=== PATIENT | female | born 1995 | race American Indian/Alaskan Native ===

== ENCOUNTER 2016-12-30 15:50 | Outpatient (CLI) | payer BC, MEDICAID ==
[2016-12-30] MEDS ORDERED: LACTATED RINGERS 500 ML IV ONE (16:09)
[2016-12-30 16:46] LABS: Bacteria,Urine 1+ /HPF (Negative); Bilirubin,Urine NEG (Negative); Blood,Urine NEG (Negative); Ketones,Urine TR mg/dL (Negative); Leukocyte Esterase,Urine LG (Negative); Mucus,Urine 3+ /HPF; Nitrite,Urine NEG (Negative); Protein,Urine <15 mg/dL mg/dL (Negative); Urobilinogen,Urine < 2.0 mg/dL (<2.0)
[2016-12-30 16:52] VITALS: BP 127/76
[2016-12-30] MEDS ORDERED: ZOFRAN IV ONE (17:49)
== END 2016-12-30 19:50 | disposition home or self-care (01) ==
LOC: TRG 15:50
PROVIDERS: ATTEND Obstetrics & Gynecology
DX: O47.03 False labor before 37 completed weeks of gestation, third trimester (principal); Z3A.33 33 weeks gestation of pregnancy
CPT/HCPCS: 59025; 81001; 96360; 96372; J2405; J7120

== ENCOUNTER 2016-12-31 08:46 | Outpatient (CLI) | payer BC, MEDICAID ==
[2016-12-31] MEDS ORDERED: LACTATED RINGERS 500 ML IV ONE (09:18)
[2016-12-31] MEDS ORDERED: ZOFRAN IV ONE (09:19)
[2016-12-31] MEDS ORDERED: LACTATED RINGERS 1,000 ML IV ONE (09:20)
[2016-12-31 09:57] VITALS: BP 140/75
[2016-12-31 10:27] LABS: Basophils % (Auto) 0.4 % (0.0-1.8); Eosinophils % (Auto) 0.4 % (0.0-4.3); Hematocrit 32.7 % (30.3-42.9); Hemoglobin 10.8 gm/dl (10.1-14.3); Mean Corpuscular HGB Conc 33 % (30-34); Mean Corpuscular Volume 78 fl (79-97); Platelet Count 331 K/mm3 (140-440); Red Cell Distribution Width 14.5 % (13.2-15.2); White Blood Count 11.2 K/mm3 (4.5-11.0)
[2016-12-31 10:43] LABS: Alanine Aminotransferase 8 units/L (7-56); Albumin 3.1 g/dL (3.9-5); Albumin/Globulin Ratio 0.9 %; Alkaline Phosphatase 97 units/L (35-129); Anion Gap 18 mmol/L; Blood Urea Nitrogen 5 mg/dL (7-17); Calcium 8.6 mg/dL (8.4-10.2); Carbon Dioxide 20 mmol/L (22-30); Chloride 100.8 mmol/L (98-107); Glucose 80 mg/dL (65-100); Mean Corpuscular Hemoglobin 26 pg (28-32); Potassium 3.9 mmol/L (3.6-5.0); Sodium 135 mmol/L (137-145); Total Protein 6.6 g/dL (6.3-8.2)
[2016-12-31] MEDS ORDERED: XYLOCAINE 1% MPF 5 mL INFILTRATI ONE (10:44)
[2016-12-31] MEDS ORDERED: ROCEPHIN IM SCH (10:45)
[2016-12-31] MEDS ORDERED: ROCEPHIN/NS 1 GM/50 ML 1 GM/50 ML BAG IV SCH (12:00)
== END 2016-12-31 13:00 | disposition home or self-care (01) ==
LOC: TRG 08:46
PROVIDERS: ATTEND Obstetrics & Gynecology
DX: O47.03 False labor before 37 completed weeks of gestation, third trimester (principal); Z3A.33 33 weeks gestation of pregnancy
CPT/HCPCS: 36415; 80053; 85025; 96360; 96361; 96365; 96374; J0696; J2405; J7120

== ENCOUNTER 2017-02-12 14:04 | Inpatient (IN) | payer BC, MEDICAID ==
[2017-02-12] MEDS ORDERED: DILAUDID IV ONE (16:00)
[2017-02-12 16:04] LABS: Hematocrit 28.2 % (30.3-42.9); Hemoglobin 9.1 gm/dl (10.1-14.3); Mean Corpuscular HGB Conc 32 % (30-34); Mean Corpuscular Volume 79 fl (79-97); Platelet Count 349 K/mm3 (140-440); Red Blood Count 3.58 M/mm3 (3.65-5.03); Red Cell Distribution Width 15.8 % (13.2-15.2)
--- NOTE | 2017-02-12 16:20 | History and Physical Report ---
History of Present Illness Date of examination: 02/12/17 Date of admission: 02/12/17 14:04 Chief complaint: sent from [facility] History of present illness: Pt is a 22 year old -Somali female s/p spontaneous vaginal delivery on 02/07/17 who presents from [facility] secondary to foul smelling lochia and perineal pain. She also reports hip pain (right greater than left). The patient reports an apneic episode yesterday when she started "jumping over things and throwing things around" in an effort to get her baby to the hospital. She took the baby to multiple hospitals, but she is now at [facility] for evaluation. The pt was noted to have difficulty walking and was examined by one of the physicians there and noted to have foul smelling lochia. The pt does reports that she has been having bilateral hip pain since before the delivery, but it has been worse since the delivery, especially her right hip. She has not taken any pain medicine since the day she was discharge from the hospital because she is "afraid of falling asleep and not being able to take care of the baby." She is visibly upset and tearful during the interview and reports that this whole situation is "too stressful because I need to be with my baby." Past History Past Medical History: other (Morbid Obesity ) Past Surgical History: other (Knee surgery ) Family/Genetic History: hypertension Social history: no significant social history - Obstetrical History : 1 Para: 1 Hx # Term Pregnancies: 1 Number of Pregnancies: 0 Spontaneous Abortions: 0 Induced : 0 Number of Living Children: 1 Medications and Allergies Allergies Allergy/AdvReac Type Severity Reaction Status Date / Time No Known Allergies Allergy Verified 12/30/16 16:09 Home Medications Medication Instructions Recorded Confirmed Last Taken Type Sulfamethoxazole/Trimethoprim 1 each PO BID #7 tablet 12/31/16 02/08/17 Unknown Rx [Bactrim DS TAB] Ferrous Sulfate [Feosol 325 MG tab] 325 mg PO BID #60 tablet 02/08/17 Unknown Rx Ibuprofen [Motrin] 800 mg PO Q8HR PRN #30 tablet 02/08/17 Unknown Rx Vit-Fe Fumar-FA [ 1 tab PO QDAY #30 tablet 02/08/17 Unknown Rx Vitamin] oxyCODONE /ACETAMINOPHEN [Percocet 1 tab PO Q6HR PRN #40 tablet 02/08/17 Unknown Rx 5/325] Review of Systems All systems: negative - Vital Signs Vital signs: Vital Signs Temp Pulse Resp BP 99.2 F 81 20 141/79 02/12/17 14:05 02/12/17 14:05 02/12/17 14:05 02/12/17 14:05 Temp Pulse Resp BP Pulse Ox 99.2 F 81 20 141/79 02/12/17 14:05 02/12/17 14:05 02/12/17 14:05 02/12/17 14:05 - Physical Exam Breasts: Positive: deferred Cardiovascular: Regular rate Lungs: Positive: Clear to auscultation Abdomen: Positive: soft (obese) Genitourinary (Female): Positive: other (Perineal laceration with yellow exudate ; tender; foul smelling lochia ) Uterus: Positive: enlarged ( ), tender Extremities: Positive: normal Results Result Diagrams: 02/12/17 15:30 02/12/17 15:30 All other labs normal. Assessment and Plan A: PPD#5 s/p at term Endometritis PIH Morbid Obesity Anxiety P: Admit to Mother/Baby unit for observation IV Gentamicin and Clindamycin Magnesium sulfate for seizure prophylaxis Pain medication PRN Monitor clinically
[2017-02-12 16:22] LABS: Alanine Aminotransferase 15 units/L (7-56)
[2017-02-12 17:01] LABS: Mean Corpuscular Hemoglobin 26 pg (28-32)
[2017-02-12 17:06] LABS: Lactate Dehydrogenase 227 units/L (91-180); Uric Acid 8.2 mg/dL (3.5-7.6)
[2017-02-12] MEDS ORDERED: VASELINE TP PRN (17:24)
[2017-02-12] MEDS ORDERED: MAGNESIUM SULFATE 4GM/100ML 4 GM/100 ML BAG IV ONE (18:28)
[2017-02-12] MEDS ORDERED: CALCIUM GLUCONATE IV SCH (19:00)
[2017-02-12] MEDS ORDERED: MAGNESIUM SULFATE 40GM/1000ML 40 GM/1,000 ML BAG IV SCH (19:00)
[2017-02-12] MEDS ORDERED: CALCIUM GLUCONATE 1,000 MG in NACL 0.9% 100 ML IV ONE (19:00)
[2017-02-12 19:19] LABS: Bacteria,Urine 1+ /HPF (Negative); Bilirubin,Urine NEG (Negative); Blood,Urine LG (Negative); Ketones,Urine NEG (Negative); Leukocyte Esterase,Urine LG (Negative); Mucus,Urine FEW /HPF; Nitrite,Urine NEG (Negative); Urobilinogen,Urine < 2.0 mg/dL (<2.0)
[2017-02-12] MEDS: CLEOCIN 900 MG/50 mL 900 MG/50 ML BAG IV SCH (21:00)
[2017-02-12] MEDS: LACTATED RINGERS 1,000 ML IV SCH (21:00)
[2017-02-12] MEDS: MOTRIN PO PRN (21:00)
[2017-02-12] MEDS: GARAMYCIN/NS 120MG/100ML 120 MG/100 ML BAG IV SCH (22:00)
[2017-02-13] MEDS: PERCOCET 5/325 PO PRN ×3 (00:35→17:34)
[2017-02-13] MEDS ORDERED: SOLARCAINE ALOE TP PRN (03:09)
[2017-02-13] MEDS: CLEOCIN 900 MG/50 mL 900 MG/50 ML BAG IV SCH ×2 (05:30→14:15)
[2017-02-13] MEDS: GARAMYCIN/NS 120MG/100ML 120 MG/100 ML BAG IV SCH ×2 (06:25→14:53)
[2017-02-13] MEDS: LACTATED RINGERS 1,000 ML IV SCH (08:48)
[2017-02-13] MEDS: MOTRIN PO PRN ×2 (11:29→17:34)
--- NOTE | 2017-02-13 13:35 | Progress Note ---
Assessment and Plan A: PPD#6 s/p at term Endometritis PIH Morbid Obesity Anxiety P: continue present mgt IV Gentamicin and Clindamycin continue for 48 hrs Day #1 Magnesium sulfate for seizure prophylaxis complete at 24 hrs Pain medication PRN Monitor clinically Subjective - Subjective Date of service: 02/13/17 Principal diagnosis: endometritis, suture tear, pih Patient reports: pain well controlled : doing well (at [facility] ) Objective - Vital Signs Latest vital signs: Vital Signs Temp Pulse Resp BP 02/13/17 12:12 97.8 F 72 18 142/68 02/13/17 07:58 98.2 F 72 18 115/61 02/13/17 06:10 98.2 F 75 18 144/76 02/13/17 04:15 97.8 F 68 18 129/68 02/13/17 02:00 97 F L 75 18 117/60 02/13/17 00:30 98.8 F 81 18 124/69 02/12/17 22:00 98.4 F 89 18 132/76 02/12/17 19:50 98.2 F 90 18 133/82 02/12/17 18:25 118/70 02/12/17 16:52 98.6 F 101 H 24 145/77 02/12/17 14:05 99.2 F 81 20 141/79 Intake and Output 02/12/17 02/13/17 02/13/17 22:59 06:59 14:59 Intake Total 390 1180 Output Total 500 Balance 390 680 Intake: IV 150 1000 CLEOCIN 900 MG/50 mL 900 50 mg In 50 ml @ 100 mls/hr IV Q8H SUE Rx#:[id number] GARAMYCIN/NS 120MG/100ML 100 120 mg In 100 ml @ 200 mls/hr IV Q8H SUE Rx#: [id number] Lactated Ringers 1,000 ml 1000 @ 125 mls/hr IV DIRECT SUE Rx#:[id number] Intake, Free Water 240 180 Output: Urine 500 Void 500 Other: Total, Output Amount 500 Voiding Method Toilet # Voids Void 1 Weight 143.335 kg - Exam Breasts: Present: normal Cardiovascular: Present: Regular rate, Normal S1 Lungs: Present: Clear to auscultation Abdomen: Present: normal appearance, soft, normal bowel sounds. Absent: distention, tenderness Vulva: right: laceration/episiotomy Uterus: Present: normal, firm, fundal height below umbilicus. Absent: bogginess , tenderness Extremities: Present: normal Deep Tendon Reflex Grade: Normal +2 - Labs Labs: Abnormal lab results 02/12/17 02/12/17 02/12/17 Range/Units 15:30 15:30 17:30 WBC 13.0 H (4.5-11.0) K/mm3 RBC 3.58 L (3.65-5.03) M/mm3 Hgb 9.1 L (10.1-14.3) gm/dl Hct 28.2 L (30.3-42.9) % MCH 26 L (28-32) pg RDW 15.8 H (13.2-15.2) % Creatinine 0.5 L (0.7-1.2) mg/dL Uric Acid 8.2 H (3.5-7.6) mg/dL Magnesium (1.7-2.3) mg/dL Lactate Dehydrogenase 227 H (91-180) units/L Urine WBC (Auto) 132.0 H (0.0-6.0) /HPF 02/13/17 Range/Units 06:44 WBC (4.5-11.0) K/mm3 RBC (3.65-5.03) M/mm3 Hgb (10.1-14.3) gm/dl Hct (30.3-42.9) % MCH (28-32) pg RDW (13.2-15.2) % Creatinine (0.7-1.2) mg/dL Uric Acid (3.5-7.6) mg/dL Magnesium 2.90 H (1.7-2.3) mg/dL Lactate Dehydrogenase (91-180) units/L Urine WBC (Auto) (0.0-6.0) /HPF
--- NOTE | 2017-02-13 16:56 | Discharge Summary ---
Providers - Providers Date of Admission: 02/12/17 14:04 Date of discharge: 02/13/17 Attending physician: ARETHA ALLEN Primary care physician: NEHA CHAVES MD Hospitalization Reason for admission: other (PPP PIH and endometritis with suture breakdown ) complications: pelvic infection, wound infection Condition at discharge: Good Disposition: DC-01 TO HOME OR SELFCARE Plan - Discharge Medications Prescriptions: Amoxicillin/K Clav Tab [Augmentin 875 mg] 1 tab PO Q12HR #20 tab oxyCODONE /ACETAMINOPHEN [Percocet 5/325] 1 tab PO Q6HR PRN #30 tablet PRN Reason: Pain - Provider Discharge Summary Activity: routine, no sex for 6 weeks Diet: routine Instructions: routine Additional instructions: [] Smoking cessation referral if applicable(refer to patient education folder for contact #) [] Refer to [facility]'s [facility] Booklet Call your doctor immediately for: * Fever > 100.5 * Heavy vaginal bleeding ( >1 pad per hour) * Severe persistent headache * Shortness of breath * Reddened, hot, painful area to leg or breast * Drainage or odor from incision. * Keep incision clean and dry at all times and follow doctor's instructions regarding bathing/showering - Follow up plan Follow up: NEHA CHAVES MD [Primary Care Provider] - 48 Hours
[2017-02-13 18:12] VITALS: BP 120/78
== END 2017-02-13 21:15 | disposition home or self-care (01) | DRG 776 ==
LOC: OB 14:04
PROVIDERS: ADMIT Obstetrics & Gynecology; ATTEND Obstetrics & Gynecology
DX: O86.12 Endometritis following delivery (principal); Z68.42 Body mass index [BMI] 45.0-49.9, adult; O99.345 Other mental disorders complicating the puerperium; O99.215 Obesity complicating the puerperium; O16.5 Unspecified maternal hypertension, complicating the puerperium; E66.01 Morbid (severe) obesity due to excess calories; F41.9 Anxiety disorder, unspecified; O99.89 Other specified diseases and conditions complicating pregnancy, childbirth and the puerperium
CPT/HCPCS: 36415; 81001; 82565; 83615; 83735; 84450; 84460; 84550; 85027; A6250; J0610; J1170; J1580; J3475; J7120

== ENCOUNTER 2017-08-15 13:10 | Emergency (ER) | payer BC, MEDICAID ==
--- NOTE | 2017-08-15 14:33 | Emergency Department Report ---
Chief Complaint: Dizziness Stated Complaint: DIZZINESS/VOMITING - HPI History of Present Illness: 22-year-old female past medical history obesity presents with complaint of episode of lightheadedness and nearly losing consciousness earlier today. Patient denies fevers chills nausea vomiting dysuria or abdominal pain. Denies alcohol or drug use. - ROS Review of Systems: Episode of near syncope today - Exam Vital Signs: Vital Signs 08/15/17 14:03 Temperature 97.7 F Pulse Rate 68 Blood Pressure 126/82 O2 Sat by Pulse 98 Oximetry Physical Exam: Awake alert and oriented 3, not in acute distress MSE screening note: Focused history and physical exam performed. Due to findings the following was ordered: Screening Assessment/Plan/Differential Dx: Near syncope/lightheadedness 1- This initial assessment/diagnostic orders/clinical plan/ treatment(s) is/are subject to change based on pt's health status, clinical progression and re- assessment by fellow clinical providers in the ED. Further treatment and workup at subsequent clinical provers discretion. Patient/guardians urged not to elope from ED as their condition may be serious if not clinically assessed and managed. 2-BMP, CBC, UA, urine . EKG normal sinus rhythm rate of 77 ED Disposition for MSE Condition: Stable
[2017-08-15 15:02] LABS: Basophils % (Auto) 0.6 % (0.0-1.8); Eosinophils % (Auto) 0.8 % (0.0-4.3); Hematocrit 36.1 % (30.3-42.9); Hemoglobin 11.2 gm/dl (10.1-14.3); Mean Corpuscular HGB Conc 31 % (30-34); Platelet Count 493 K/mm3 (140-440); Red Blood Count 5.22 M/mm3 (3.65-5.03); Red Cell Distribution Width 18.7 % (13.2-15.2); White Blood Count 11.6 K/mm3 (4.5-11.0)
[2017-08-15 15:10] LABS: Mean Corpuscular Hemoglobin 22 pg (28-32); Mean Corpuscular Volume 69 fl (79-97)
[2017-08-15 15:30] LABS: BUN/Creatinine Ratio 17; Blood Urea Nitrogen 10 mg/dL (7-17); Calcium 9.2 mg/dL (8.4-10.2); Carbon Dioxide 24 mmol/L (22-30); Glucose 88 mg/dL (65-100)
[2017-08-15 15:31] LABS: Anion Gap 19 mmol/L; Chloride 101.3 mmol/L (98-107); Potassium 4.5 mmol/L (3.6-5.0); Sodium 140 mmol/L (137-145)
[2017-08-15 16:16] LABS: Bacteria,Urine 1+ /HPF (Negative); Bilirubin,Urine NEG (Negative); Blood,Urine NEG (Negative); Ketones,Urine NEG (Negative); Leukocyte Esterase,Urine TR (Negative); Mucus,Urine FEW /HPF; Nitrite,Urine NEG (Negative); Protein,Urine <15 mg/dL mg/dL (Negative); Urobilinogen,Urine < 2.0 mg/dL (<2.0)
--- NOTE | 2017-08-15 17:36 | Emergency Department Report ---
ED Dizziness HPI - General Chief Complaint: Dizziness Stated Complaint: DIZZINESS/VOMITING Time Seen by Provider: 08/15/17 17:01 Source: patient Mode of arrival: Ambulatory Limitations: No Limitations - History of Present Illness Initial Comments: Patient woke up this AM with GI bug and had vomiting with diarrhea and since has been light-headed and fatigued. Generalized abdominal pain. No fevers. No SOB. -: This morning Timing: sudden onset Description: lightheadedness, off-balance, near-syncope History of Same: No History of Trauma: No Severity: moderate Improves With: rest Worsens With: movement, position Associated Symptoms: denies other symptoms - Related Data Previous Rx's Medication Instructions Recorded Last Taken Type Sulfamethoxazole/Trimethoprim 1 each PO BID #7 tablet 12/31/16 Unknown Rx [Bactrim DS TAB] Ferrous Sulfate [Feosol 325 MG tab] 325 mg PO BID #60 tablet 02/08/17 Unknown Rx Ibuprofen [Motrin] 800 mg PO Q8HR PRN #30 tablet 02/08/17 Unknown Rx Vit-Fe Fumar-FA [ 1 tab PO QDAY #30 tablet 02/08/17 Unknown Rx Vitamin] oxyCODONE /ACETAMINOPHEN [Percocet 1 tab PO Q6HR PRN #40 tablet 02/08/17 Unknown Rx 5/325] Amoxicillin/K Clav Tab [Augmentin 1 tab PO Q12HR #20 tab 02/13/17 Unknown Rx 875 mg] oxyCODONE /ACETAMINOPHEN [Percocet 1 tab PO Q6HR PRN #30 tablet 02/13/17 Unknown Rx 5/325] Ondansetron [Zofran TAB] 4 mg PO Q8HR PRN #30 tablet 08/15/17 Unknown Rx Allergies Allergy/AdvReac Type Severity Reaction Status Date / Time No Known Allergies Allergy Verified 08/15/17 14:03 ED Review of Systems ROS: Stated complaint: DIZZINESS/VOMITING Other details as noted in HPI Constitutional: weakness. denies: chills, fever Eyes: denies: eye pain, eye discharge, vision change ENT: denies: ear pain, throat pain Respiratory: denies: cough, shortness of breath, wheezing Cardiovascular: denies: chest pain, palpitations Endocrine: no symptoms reported Gastrointestinal: abdominal pain, nausea, vomiting, diarrhea Genitourinary: denies: urgency, dysuria, discharge Musculoskeletal: denies: back pain, joint swelling, arthralgia Skin: denies: rash, lesions Neurological: headache, weakness. denies: paresthesias Psychiatric: denies: anxiety, depression Hematological/Lymphatic: denies: easy bleeding, easy bruising ED Past Medical Hx - Past Medical History Previous Medical History?: No Hx Hypertension: No Hx Congestive Heart Failure: No Hx Diabetes: No Hx Deep Vein Thrombosis: No Hx Renal Disease: No Hx Sickle Cell Disease: No Hx Seizures: No Hx Asthma: No Hx COPD: No Hx HIV: No - Surgical History Past Surgical History?: Yes Additional Surgical History: Knee surgery - Social History Smoking Status: Never Smoker - Medications Home Medications: Home Medications Medication Instructions Recorded Confirmed Last Taken Type Sulfamethoxazole/Trimethoprim 1 each PO BID #7 tablet 12/31/16 02/13/17 Unknown Rx [Bactrim DS TAB] Ferrous Sulfate [Feosol 325 MG tab] 325 mg PO BID #60 tablet 02/08/17 02/13/17 Unknown Rx Ibuprofen [Motrin] 800 mg PO Q8HR PRN #30 tablet 02/08/17 02/13/17 Unknown Rx Vit-Fe Fumar-FA [ 1 tab PO QDAY #30 tablet 02/08/17 02/13/17 Unknown Rx Vitamin] oxyCODONE /ACETAMINOPHEN [Percocet 1 tab PO Q6HR PRN #40 tablet 02/08/17 Unknown Rx 5/325] Amoxicillin/K Clav Tab [Augmentin 1 tab PO Q12HR #20 tab 02/13/17 Unknown Rx 875 mg] oxyCODONE /ACETAMINOPHEN [Percocet 1 tab PO Q6HR PRN #30 tablet 02/13/17 Unknown Rx 5/325] Ondansetron [Zofran TAB] 4 mg PO Q8HR PRN #30 tablet 08/15/17 Unknown Rx ED Physical Exam - General Limitations: No Limitations General appearance: alert, in no apparent distress - Head Head exam: Present: atraumatic, normocephalic - Eye Eye exam: Present: normal appearance - ENT ENT exam: Present: mucous membranes moist - Neck Neck exam: Present: normal inspection - Respiratory Respiratory exam: Present: normal lung sounds bilaterally. Absent: respiratory distress - Cardiovascular Cardiovascular Exam: Present: regular rate, normal rhythm. Absent: systolic murmur, diastolic murmur, rubs, gallop - GI/Abdominal GI/Abdominal exam: Present: soft, tenderness (Diffuse TTP with no guarding or peritonitis.), normal bowel sounds, hyperactive bowel sounds - Extremities Exam Extremities exam: Present: normal inspection - Back Exam Back exam: Present: normal inspection - Neurological Exam Neurological exam: Present: alert, oriented X3 - Psychiatric Psychiatric exam: Present: normal affect, normal mood - Skin Skin exam: Present: warm, dry, intact, normal color. Absent: rash ED Course Vital Signs 08/15/17 08/15/17 08/15/17 14:03 15:53 15:56 Temperature 97.7 F 99.0 F Pulse Rate 68 85 Respiratory 16 16 Rate Blood Pressure 126/82 Blood Pressure 114/85 [Left] O2 Sat by Pulse 98 100 100 Oximetry ED Medical Decision Making - Lab Data Result diagrams: 08/15/17 14:42 08/15/17 14:42 unremarkable labs. - EKG Data -: EKG Interpreted by Me EKG shows normal: sinus rhythm, axis, intervals, QRS complexes, ST-T waves Rate: normal - EKG Data Interpretation: normal EKG - Medical Decision Making Patient with viral gastroenteritis and vasovagal response. D/W patient supportive care. Will hydrate and allow diarrhea. Will use zofran. Return to ED or go to PCP if no better or worse. Abdomen is no acute so should do well and no indication for CT. Patient agreed with plan. Orthostatic did not indicate need for fluids. Critical care attestation.: If time is entered above; I have spent that time in minutes in the direct care of this critically ill patient, excluding procedure time. ED Disposition Clinical Impression: Viral gastroenteritis, Nausea vomiting and diarrhea, Vasovagal symptom Disposition: DC-01 TO HOME OR SELFCARE Is pt being admited?: No Does the pt Need Aspirin: No Condition: Good Instructions: Acute Nausea and Vomiting (ED), Gastroenteritis (ED) Prescriptions: Ondansetron [Zofran TAB] 4 mg PO Q8HR PRN #30 tablet PRN Reason: Nausea Referrals: [facility] [Outside] - 3-5 Days Time of Disposition: 17:41
[2017-08-15 17:47] VITALS: BP 149/93
== END 2017-08-15 17:55 | disposition home or self-care (01) ==
LOC: ED 13:10
DX: A08.39 Other viral enteritis (principal); R11.2 Nausea with vomiting, unspecified; R19.7 Diarrhea, unspecified
CPT/HCPCS: 36415; 80048; 81001; 84703; 85025; 93005; 93010; 99283

== ENCOUNTER 2018-02-12 23:40 | Emergency (ER) | payer BC ==
[2018-02-13 02:19] VITALS: BP 168/112
[2018-02-13 02:45] LABS: Basophils # (Auto) 0.1 K/mm3 (0.0-0.1); Basophils % (Auto) 0.9 % (0.0-1.8); Eosinophils # (Auto) 0.1 K/mm3 (0.0-0.4); Eosinophils % (Auto) 0.8 % (0.0-4.3); Hematocrit 37.7 % (30.3-42.9); Hemoglobin 11.9 gm/dl (10.1-14.3); Lymphocytes # (Auto) 3.5 K/mm3 (1.2-5.4); Lymphocytes % (Auto) 31.8 % (13.4-35.0); Mean Corpuscular HGB Conc 32 % (30-34); Mean Corpuscular Volume 74 fl (79-97); Monocytes # (Auto) 0.4 K/mm3 (0.0-0.8); Monocytes % (Auto) 4.1 % (0.0-7.3); Platelet Count 432 K/mm3 (140-440); Red Blood Count 5.13 M/mm3 (3.65-5.03); Red Cell Distribution Width 17.3 % (13.2-15.2)
[2018-02-13 02:55] LABS: INR 0.95 (0.87-1.13)
[2018-02-13 02:56] LABS: Partial Thromboplastin Time 34.7 Sec. (24.2-36.6)
[2018-02-13 02:57] LABS: Mean Corpuscular Hemoglobin 23 pg (28-32)
[2018-02-13 03:00] LABS: BUN/Creatinine Ratio 11; Blood Urea Nitrogen 8 mg/dL (7-17); Calcium 8.9 mg/dL (8.4-10.2); Hemolysis Index 0
== END 2018-02-13 04:29 | disposition left against medical advice (07) ==
LOC: ED 23:40
DX: R10.9 Unspecified abdominal pain (principal); R06.02 Shortness of breath; R42 Dizziness and giddiness; Z53.21 Procedure and treatment not carried out due to patient leaving prior to being seen by health care provider
CPT/HCPCS: 36415; 80048; 84484; 84703; 85025; 85610; 85730; 93005; 93010

== ENCOUNTER 2019-06-24 14:55 | Outpatient (CLI) | payer BC ==
[2019-06-24 16:54] VITALS: BP 133/71
--- NOTE | 2019-06-24 18:13 | Ultrasound Report ---
Limited OB ultrasound. 06/24/2019. HISTORY: Pain status post fall. FINDINGS: Limited OB ultrasound was performed. No placental abruption is identified. A single viable intrauterine in the cephalic position has heart tones at 144 bpm. Amniotic fluid index is 16.3 cm. IMPRESSION: Negative for abruption. Signer Name: Rafael Alvarado MD Signed: 06/24/2019 6:09 PM Workstation Name: [id number]
[2019-06-24] MEDS ORDERED: LACTATED RINGERS 1,000 ML ONE (18:25)
== END 2019-06-24 19:34 | disposition home or self-care (01) ==
LOC: TRG 14:55
PROVIDERS: ATTEND Obstetrics & Gynecology
DX: O26.892 Other specified pregnancy related conditions, second trimester (principal); R10.2 Pelvic and perineal pain; O47.02 False labor before 37 completed weeks of gestation, second trimester; Z3A.25 25 weeks gestation of pregnancy; W19.XXXA Unspecified fall, initial encounter; Y92.89 Other specified places as the place of occurrence of the external cause; Y93.89 Activity, other specified; Y99.8 Other external cause status
CPT/HCPCS: 59025; 76815; 86850; 86900; 86901; J7120

== ENCOUNTER 2022-01-06 15:56 | Outpatient (CLI) | payer BC ==
[2022-01-06] MEDS ORDERED: LACTATED RINGERS 500 ML IV ONE (16:41)
[2022-01-06 16:54] VITALS: BP 114/60
[2022-01-06 17:47] LABS: Bilirubin,Urine NEG (Negative); Blood,Urine NEG (Negative); Color,Urine Yellow (Yellow); Mucus,Urine 2+ /HPF; Protein,Urine <15 mg/dL mg/dL (Negative); Urobilinogen,Urine < 2.0 mg/dL (<2.0)
== END 2022-01-06 19:21 | disposition home or self-care (01) ==
LOC: TRG 15:56 → APU 15:58 → TRG 19:21
PROVIDERS: ATTEND Obstetrics & Gynecology
DX: O26.893 Other specified pregnancy related conditions, third trimester (principal); R10.30 Lower abdominal pain, unspecified; Z3A.30 30 weeks gestation of pregnancy
CPT/HCPCS: 59025; 81001

== ENCOUNTER 2022-02-25 11:30 | Outpatient (CLI) | payer BC ==
[2022-02-25 12:57] VITALS: BP 119/77
== END 2022-02-25 13:00 | disposition home or self-care (01) ==
LOC: TRG 11:30 → APU 11:31 → TRG 13:00
PROVIDERS: ATTEND Obstetrics & Gynecology
DX: O47.03 False labor before 37 completed weeks of gestation, third trimester (principal); Z3A.36 36 weeks gestation of pregnancy
CPT/HCPCS: 59025

== ENCOUNTER 2022-03-04 09:01 | Outpatient (CLI) | payer BC ==
[2022-03-04] MEDS ORDERED: D5W/LACTATED RINGERS 1,000 ML IV SCH (11:00)
[2022-03-04 12:14] VITALS: BP 116/64
--- NOTE | 2022-03-04 12:36 | Ultrasound Report ---
ULTRASOUND BIOPHYSICAL PROFILE INDICATION: wellbeing. COMPARISON: None available. FINDINGS: heart rate is 135 beats per minute. breathing movement = 2 Gross body movement = 2 tone = 2 Qualitative amniotic fluid volume = 2 IMPRESSION: biophysical profile = 04/11 Signer Name: Mason Price Jr, MD Signed: 03/04/2022 12:31 PM Workstation Name: [id number]
--- NOTE | 2022-03-04 12:39 | Ultrasound Report ---
ULTRASOUND OBSTETRIC COMPLETE INDICATION / CLINICAL INFORMATION: wellbeing. Clinical Gestational Age (GA) in weeks.days: 38.2 TECHNIQUE: Transabdominal. COMPARISON: None available. FINDINGS: NUMBER: Single PRESENTATION: cephalic PLACENTA: Left lateral, grade 1 and free of the os. MATERNAL ADNEXA: No significant abnormality. AMNIOTIC FLUID VOLUME: normal AMNIOTIC FLUID INDEX (DALIA) in cm (if measured): 11.7 ANATOMY: anatomical survey was not performed. MEASUREMENTS: - Biparietal Diameter = 9.3 cm = 37.6 weeks.days - Head Circumference = 33.1 cm = 37.4 weeks.days - Abdominal Circumference = 32.6 cm = 36.4 weeks.days - Femur Length = 7.3 cm = 37.3 weeks.days - Estimated Weight (in grams, if calculated): 3094 - Heart Rate (beats per minute): 152 ADDITIONAL FINDINGS: None. PERCENTILE ESTIMATED WEIGHT (if calculated): 32 AVERAGE ULTRASOUND AGE (AUA) in weeks.days = 37.3 IMPRESSION: 1. Single intrauterine with AUA of 37.3 weeks.days 2. No significant sonographic abnormality. Signer Name: Mason Price Jr, MD Signed: 03/04/2022 12:33 PM Workstation Name: [id number]
== END 2022-03-04 13:43 | disposition home or self-care (01) ==
LOC: APU 09:01 → TRG 09:01
PROVIDERS: ATTEND Obstetrics & Gynecology
DX: O26.893 Other specified pregnancy related conditions, third trimester (principal); M54.9 Dorsalgia, unspecified; O42.913 Preterm premature rupture of membranes, unspecified as to length of time between rupture and onset of labor, third trimester; O47.1 False labor at or after 37 completed weeks of gestation; O99.323 Drug use complicating pregnancy, third trimester; F12.90 Cannabis use, unspecified, uncomplicated; Z3A.38 38 weeks gestation of pregnancy
CPT/HCPCS: 76816; 76819; 96360; 96361; J7121; J7060

== ENCOUNTER 2022-03-10 15:09 | Inpatient (IN) | payer BC ==
--- NOTE | 2022-03-10 18:33 | History and Physical Report ---
History of Present Illness Date of examination: 03/10/22 Date of admission: 03/10/2022 Chief complaint: IOL secondary to MO History of present illness: 27yo, @ 39.1 wks, initiated care with [facility] integration specialist at 13.2 wks gestation. has been complicated by + Chlamydia, HSV2, MO and rubella non-immune status. She presents to [facility] for scheduled IOL secondary to MO. Reports + FM. Denies any VB or LOF. Labs: O+, antibody negative; rubella equivocal; VDRL negative; HBsAg negative; HIV negative; GC/Trichomonas negative; MSAFP/Multiple markers negative; 1 hr gtt 91; GBS negative. Past History Past Medical History: no pertinent history Past Surgical History: other (knee surgery) [employer] PROFESSOR History: herpes Family/Genetic History: heart disease, other (anxiety) Social history: single, lives with family, full code. denies: smoking, alcohol abuse, prescription drug abuse, IV drug use - Obstetrical History Expected Date of Delivery: 03/16/22 Actual Gestation: 39 Week(s) 1 Day(s) : 3 Para: 2 Hx # Term Pregnancies: 2 Number of Pregnancies: 0 Spontaneous Abortions: 0 Induced : 0 Number of Living Children: 2 #1 Infant Gender: Female year: 2,017 Birthweight: 2.892 kg Method of Delivery: Vaginal Gestational age at delivery: 39 Complications: none #2 Infant Gender: Female year: 2,020 Birthweight: 3.175 kg Method of Delivery: Vaginal Gestational age at delivery: 40 Complications: none Medications and Allergies Allergies Allergy/AdvReac Type Severity Reaction Status Date / Time No Known Allergies Allergy Verified 03/04/22 09:32 Home Medications Medication Instructions Recorded Confirmed Last Taken Type Ferrous Sulfate [Ferrous Sulfate 324 mg PO BID #60 tablet. 10/03/19 03/10/22 Unknown Rx 324 MG] Ibuprofen [Motrin] 600 mg PO Q6H PRN #60 tablet 10/03/19 03/10/22 Unknown Rx - Vital Signs Vital signs: Vital Signs Pulse Pulse Ox 86 99 03/10/22 16:32 03/10/22 16:32 Temp Pulse Resp BP Pulse Ox 97.9 F 90 24 133/86 99 03/10/22 16:36 03/10/22 18:27 03/10/22 16:36 03/10/22 16:37 03/10/22 18:27 - Physical Exam Breasts: Positive: normal Cardiovascular: Regular rate Lungs: Positive: Normal air movement Abdomen: Positive: other (gravid) Uterus: Positive: enlarged Deep Tendon Reflex Grade: Normal +2 - Obstetrical Cervical Dilatation: 2 (vertex) Cervical Effacement Percentage: 40 station: -4 Uterine Contraction Pattern: Absent Uterine Tone Measurement Phase: Resting Results Result Diagrams: 03/10/22 17:50 All other labs normal. Assessment and Plan - Patient Problems (1) Morbid obesity with BMI of 45.0-49.9, adult Current Visit: No Status: Acute Plan to address problem: IOL, initiate cervidil as tolerated Pain meds as desired per orders Anticipate (2) HSV-2 seropositive Current Visit: Yes Status: Acute (3) Rubella non-immune status, antepartum Current Visit: Yes Status: Acute (4) Chlamydia infection affecting Current Visit: Yes Status: Acute
[2022-03-10] MEDS ORDERED: ACETAMINOPHEN 325 MG TAB PO PRN (18:39)
[2022-03-10] MEDS ORDERED: TERBUTALINE 1 MG/1 ML INJ SUB-Q PRN (18:39)
[2022-03-10] MEDS ORDERED: fentaNYL 100 MCG/2 ML INJ IV PRN (18:39)
[2022-03-10] MEDS ORDERED: OXYTOCIN 10 UNIT/1 ML INJ IM PRN (18:39)
[2022-03-10] MEDS ORDERED: BUTORPHANOL 2 MG/1 ML INJ IV PRN (18:39)
[2022-03-10] MEDS ORDERED: ONDANSETRON 4 MG/2 ML INJ IV PRN (18:39)
[2022-03-10] MEDS ORDERED: miSOPROStol 200 MCG TAB PR PRN (18:39)
[2022-03-10] MEDS ORDERED: ePHEDrine SULFATE 50 MG/1 ML INJ IV PRN (18:39)
[2022-03-10] MEDS ORDERED: LOPERAMIDE 2 MG CAP PO PRN (18:39)
[2022-03-10] MEDS ORDERED: CARBOPROST TROMETHAMINE 250 MCG/1 ML INJ IM PRN (18:39)
[2022-03-10] MEDS ORDERED: LIDOCAINE (2%) 20 MG/1 ML VIAL 20 ML MDV INFILTRATI ONE (18:39)
[2022-03-10] MEDS ORDERED: MINERAL OIL 30 ML ORAL LIQD PO PRN (18:39)
[2022-03-10] MEDS ORDERED: METHYLERGONOVINE MALEATE 0.2 MG/ML VIAL IM PRN (18:39)
[2022-03-10] MEDS ORDERED: OXYTOCIN DRIP 30 UNITS/500 ML BAG IV SCH (19:00)
[2022-03-10 19:10] LABS: Hematocrit 35.7 % (30.3-42.9); Hemoglobin 11.5 gm/dl (10.1-14.3); Mean Corpuscular HGB Conc 32 % (30-34); Mean Corpuscular Volume 76 fl (79-97); Platelet Count 336 K/mm3 (140-440); Red Blood Count 4.71 M/mm3 (3.65-5.03); Red Cell Distribution Width 15.5 % (13.2-15.2)
[2022-03-10] MEDS: LACTATED RINGERS 1,000 ML IV SCH (21:30)
[2022-03-10] MEDS ORDERED: DINOPROSTONE 10 MG VAG SUPP VG ONE (21:54)
[2022-03-10] MEDS ORDERED: ZOLPIDEM 5 MG TAB PO ONE (23:20)
[2022-03-11] MEDS: LACTATED RINGERS 1,000 ML IV SCH (03:01)
[2022-03-11] MEDS ORDERED: ePHEDrine SULFATE 50 MG/1 ML INJ IV PRN (11:45)
[2022-03-11] MEDS ORDERED: fentaNYL-BUPIV 2 MCG/ML-0.125% 200 MCG/100 ML BAG EPIDURAL SCH (11:45)
[2022-03-11] MEDS ORDERED: NALOXONE 0.4 MG/1 ML INJ IV PRN (11:45)
[2022-03-11] MEDS ORDERED: LIDOCAINE (2%) 20 MG/1 ML VIAL 20 ML MDV INFILTRATI ONE (11:57)
--- NOTE | 2022-03-11 12:04 | Procedure Note ---
OB Delivery Note - Delivery Date of Delivery: 03/11/22 Surgeon: COLLIN KELSEY Estimated blood loss: 200cc - Vaginal Delivery presentation: vertex Delivery position: OA Delivery monitor: external FHT, external uterine Route of delivery: Delivery placenta: spontaneous Delivery cord: 3 umbilical vessels Episiotomy: none Delivery laceration: none Anesthesia: none Delivery comments: The patient had a precipitous delivery of a liveborn female with Apgars of 8 and 9 weight 8 pounds 3 ounces. Soon after spontaneous rupture of membranes the patient complained of regular contractions and had the urge to push. The placenta delivered spontaneously intact with a three-vessel cord. No lacerations were noted estimated blood loss 200 mL - A at 1 minute: 8 at 5 minutes: 9 Gender: Female (Weight 8 pounds 3 ounces)
[2022-03-11] MEDS ORDERED: ACETAMINOPHEN 325 MG TAB PO PRN (12:05)
[2022-03-11] MEDS ORDERED: LANOLIN/ZINC/DIMETHICONE (LANSINOH) 7 GM TP PRN (12:05)
[2022-03-11] MEDS ORDERED: WITCH HAZEL/ GLYCERIN PAD TP PRN (12:05)
[2022-03-11] MEDS ORDERED: MAGNESIUM HYDROXIDE (MOM) ORAL LIQD UDC PO PRN (12:05)
[2022-03-11] MEDS ORDERED: diphenhydrAMINE 25 MG CAP PO PRN (12:05)
[2022-03-11] MEDS ORDERED: PROMETHAZINE 25 MG RECT SUPP PR PRN (12:05)
[2022-03-11] MEDS ORDERED: PROMETHAZINE 25 MG TAB PO PRN (12:05)
[2022-03-11] MEDS ORDERED: HYDROcodone/ACETAMINOPHEN 5-325 MG TAB PO PRN (12:05)
[2022-03-11] MEDS ORDERED: ONDANSETRON 4 MG/2 ML INJ IV PRN (12:05)
[2022-03-11] MEDS ORDERED: IBUPROFEN 800 MG TAB PO SCH (13:00)
[2022-03-12] MEDS ORDERED: IBUPROFEN 800 MG TAB PO SCH
[2022-03-12 01:50] LABS: Hematocrit 31.1 % (30.3-42.9); Hemoglobin 10.1 gm/dl (10.1-14.3)
[2022-03-12 08:46] VITALS: BP 129/72
--- NOTE | 2022-03-12 11:41 | Discharge Summary ---
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 has been complicated by + Chlamydia, HSV2, MO and rubella non-immune status. She presents to [facility] for scheduled IOL secondary to MO. Reports + FM. Denies any VB or LOF. Labs: O+, antibody negative; rubella equivocal; VDRL negative; HBsAg negative; HIV negative; GC/Trichomonas negative; MSAFP/Multiple markers negative; 1 hr gtt 91; GBS negative. Delivered viable female infant via . Doing well, wishes to go home today if baby is ok for discharge also. Discharge criteria met. Condition at discharge: Good Disposition: 01 HOME / SELF CARE / HOMELESS - Discharge Diagnoses (1) Morbid obesity with BMI of 45.0-49.9, adult Status: Acute (2) HSV-2 seropositive Status: Acute (3) Rubella non-immune status, antepartum Status: Acute (4) Status post normal vaginal delivery Status: Acute (5) Anemia Status: Acute Qualifiers: Anemia type: other cause Other causes of anemia: acute posthemorrhagic Qualified Code(s): D62 - Acute posthemorrhagic anemia Comment: Asymptomatic Increase iron rich foods into diet Plan - Discharge Medications Prescriptions: Ibuprofen [Motrin 800 MG tab] 800 mg PO Q8HR #30 tablet - Provider Discharge Summary Activity: routine, no sex for 6 weeks, no heavy lifting 4 weeks, no strenuous exercise Diet: other (iron rich diet) Instructions: routine Additional instructions: [] Smoking cessation referral if applicable(refer to patient education folder for contact #) [] Refer to [facility] Booklet Call your doctor immediately for: * Fever > 100.5 * Heavy vaginal bleeding ( >1 pad per hour) * Severe persistent headache * Shortness of breath * Reddened, hot, painful area to leg or breast - Follow up plan Follow up: ARETHA ALLEN MD [Primary Care Provider] - 6 Weeks
== END 2022-03-12 17:09 | disposition home or self-care (01) | DRG 806 ==
LOC: TRG 15:09 → LD 15:57 → TRG 19:07 → OB 03-11 15:37
PROVIDERS: ADMIT Obstetrics & Gynecology; ATTEND Obstetrics & Gynecology
PROC: 10E0XZZ Delivery of Products of Conception, External Approach (ICD-10-PCS; principal; 2022-03-11)
DX: O62.3 Precipitate labor (principal); O98.32 Other infections with a predominantly sexual mode of transmission complicating childbirth; Z37.0 Single live birth; D62 Acute posthemorrhagic anemia; O99.214 Obesity complicating childbirth; A60.00 Herpesviral infection of urogenital system, unspecified; E66.01 Morbid (severe) obesity due to excess calories; Z3A.39 39 weeks gestation of pregnancy; O90.81 Anemia of the puerperium
CPT/HCPCS: 36415; 59200; 85014; 85018; 85027; 86850; 86900; 86901; G0378; J0595; J7120; U0003